=== PATIENT | male | born 1975 | race Caucasian/White ===

== ENCOUNTER 2020-12-28 10:34 | Outpatient (CLI) | payer SELFPAY ==
[2020-12-28 11:01] VITALS: BP 135/90; PULSE 81; RESP 16; TEMP 37; O2SAT 98; BMI 34.7
[2020-12-28 11:45] VITALS: BP 134/83; PULSE 79; RESP 16; TEMP 37; O2SAT 98
[2020-12-28 12:47] VITALS: BP 135/86; PULSE 71; RESP 16; TEMP 36.9; O2SAT 98
[2020-12-28 12:49] VITALS: BP 135/86; PULSE 71; RESP 16; TEMP 36.9; O2SAT 98
== END 2020-12-28 12:48 | disposition home or self-care (01) ==
LOC: OPS 10:37
PROVIDERS: Visit Provider Nurse Practitioner Family
DX: U07.1 COVID-19 (principal)
CPT/HCPCS: 96365

== ENCOUNTER → 2023-05-04 11:16 | Outpatient (BNVA) | payer SELFPAY | PROVIDERS: Visit Provider Nurse Practitioner | DX: R05.9 Cough, unspecified (principal); J20.8 Acute bronchitis due to other specified organisms; B96.89 Other specified bacterial agents as the cause of diseases classified elsewhere | CPT/HCPCS: 87400 ==